=== PATIENT | female | born 2000 | race Caucasian/White ===

== ENCOUNTER 2020-11-10 09:57 | Emergency (ER) | payer BC ==
[~2020-11-10] VITALS: Ht 170.2 cm; Wt 75.0 kg
[2020-11-10] MEDS ORDERED: meclizine 12.5mg tablet PO ONE (10:25)
[2020-11-10] MEDS ORDERED: ondansetron/PF 4mg/2ml inj IV ONE (10:25)
[2020-11-10] MEDS ORDERED: normal saline 1000ml 1,000 ML IV ONE (10:25)
[2020-11-10 11:00] VITALS: BP 110/76
[2020-11-10 11:08] LABS: CLARITY,URINE CLOUDY (Clear); COLOR,URINE YELLOW (Yellow); GLUCOSE, URINE NEGATIVE (Neg); KETONES,URINE NEGATIVE (Neg); LEUKOCYTE ESTERASE ,URINE LARGE (Neg); NITRITES, URINE POSITIVE (Neg); OCCULT BLOOD,URINE TRACE-INTACT (Neg); PROTEIN,URINE NEGATIVE (Neg); UROBILINOGEN,URINE 0.2 E.U/dL (0.2-1.0)
[2020-11-10 11:14] LABS: BASOPHILS % (AUTO) 0.9 % (0-1); EOSINOPHILS # (AUTO) 0.1 X10'3 (0-0.9); EOSINOPHILS % (AUTO) 1.2 % (0-6); HEMATOCRIT 37.3 % (35.0-45.0); HEMOGLOBIN 12.1 g/dl (12.0-16.0); LYMPHOCYTES # (AUTO) 2.4 X10'3 (1.1-4.8); LYMPHOCYTES % (AUTO) 49.5 % (21-51); MEAN CORPUSCULAR HEMOGLOBIN 24.5 PG (27.0-31.0); MEAN CORPUSCULAR HGB CONC 32.4 g/dL (33.0-36.5); MEAN CORPUSCULAR VOLUME 75.6 FL (78-98); MEAN PLATELET VOLUME 8.7 FL (7.4-10.4); MONOCYTES # (AUTO) 0.4 X10'3 (0-0.9); MONOCYTES % (AUTO) 7.5 % (2-12); NEUTROPHILS % (AUTO) 40.9 % (42-75); PLATELET COUNT 179 X10'3 (140-440); RED BLOOD COUNT 4.93 X10'6 (4.20-5.60); RED CELL DISTRIBUTION WIDTH 14.5 % (11.5-14.5); WHITE BLOOD COUNT 4.9 X10'3 (4.5-11.0)
[2020-11-10 11:15] LABS: UA COLLECTION TYPE CLN CATCH MIDSTREAM
[2020-11-10 11:17] LABS: BACTERIA,URINE 4+ /HPF (Neg); MUCUS STRANDS FEW /LPF (Neg); RBC,URINE 0-2 /HPF (0-2); SQUAMOUS EPITHELIAL CELL,UR MODERATE /LPF (FEW); WBC,URINE TNTC /HPF (0-4)
[2020-11-10 11:24] LABS: ALANINE AMINOTRANSFERASE 38 U/L (12-78); ALBUMIN 3.4 G/DL (3.4-5.0); ALBUMIN/GLOBULIN RATIO 0.8 (1.1-1.5); ALKALINE PHOSPHATASE 90 IU/L (20-180); ANION GAP 13 (8-16); ASPARTATE AMINO TRANSFERASE 29 U/L (10-37); BILIRUBIN,TOTAL 0.3 MG/DL (0.1-1.0); BLOOD UREA NITROGEN 7 MG/DL (7-18); BUN/CREATININE RATIO 10.3 (6.6-38.0); CALCIUM 8.7 MG/DL (8.5-10.1); CHLORIDE 104 MMOL/L (99-107); CREATININE 0.68 MG/DL (0.40-0.90); GLUCOSE 95 MG/DL (70-104); LIPASE 121 U/L (73-393); POTASSIUM 3.4 MMOL/L (3.5-5.1); SODIUM 140 MMOL/L (135-145); TOTAL CARBON DIOXIDE 22.6 MMOL/L (24-32); TOTAL PROTEIN 7.9 G/DL (6.4-8.2); eGFR > 90 ML/MIN
[2020-11-10] MEDS ORDERED: CEPH250T PO (11:35)
[2020-11-10] MEDS ORDERED: PHEN-824 PO (11:35)
[2020-11-10] MEDS ORDERED: MECL-226 PO (11:35)
[2020-11-10] MEDS ORDERED: ONDA4TAB6 PO (11:36)
[2020-11-10] MEDS ORDERED: potassium Cl 20 mEq SR tablet PO ONE (11:40)
== END 2020-11-10 13:20 | disposition home or self-care (01) ==
LOC: ER 09:57
DX: N39.0 Urinary tract infection, site not specified (principal); E87.6 Hypokalemia; R06.02 Shortness of breath; R10.30 Lower abdominal pain, unspecified; R51.9 Headache, unspecified; Z79.899 Other long term (current) drug therapy
CPT/HCPCS: 36415; 80053; 81001; 83690; 85025; 87077; 87088; 87186; 93005; 96374; 99284; J2405; J7030; J8597

== ENCOUNTER 2025-04-05 18:06 | Emergency (ER) | payer BC, MEDICAID ==
[~2025-04-05] VITALS: Ht 170.2 cm; Wt 75.9 kg
[~2025-04-05 18:06] MED LIST: MECL-226 PO; ONDA4TAB6 PO; PHEN-824 PO
[2025-04-05 18:17] VITALS: BP 120/64; PULSE 74; O2SAT 99
[2025-04-05 20:48] LABS: URINE HCG POSITIVE (NEG)
[2025-04-05 20:50] LABS: LEUKOCYTE ESTERASE ,URINE NEGATIVE (Neg); NITRITES, URINE NEGATIVE (Neg); OCCULT BLOOD,URINE NEGATIVE (Neg)
--- NOTE | 2025-04-05 20:58 | Physician Documentation ---
History of Present Illness ~ Chief Complaint: Complications Stated Complaint: COMPLICATION Time Seen by MD: 22:26 HPI This is a 24-year-old female who presents with a concern for possible miscarriage, patient reports she believes she may be 5-6 weeks though experienced two days of heavy vaginal bleeding without clots. Patient reports she is not currently experiencing any bleeding though is experiencing sharp suprapubic pain. She reports her blood type is A positive Medication Reconciliation Allergies: Coded Allergies: No Known Allergies (Unverified , 04/05/25) Scheduled Meclizine HCl (Meclizine HCl), 1 TAB PO Q8H Ondansetron Hcl (Zofran), 1 TAB PO Q6H Phenazopyridine HCl (Pyridium), 1 TAB PO Q8H Past Medical History Past Medical History: No Pertinent History Past Surgical History: no surgical history Alcohol Use: None Drug Use: none Lives In: Home Occupation: employed Review of Systems ROS As stated above in the HPI, otherwise all systems are reviewed and negative. Physical Exam Physical Exam Vital Signs: Temperature: 98.0, Source: Temporal, Heart Rate: 74, Respiratory Rate: 18, BP: 120/64, Pulse Oximetry: 99, Weight: 75.900 Oxygen Flow Rate: 0 Physical Exam VITALS: Reviewed and as above. GENERAL: Alert, nontoxic appearing, no apparent distress. HEENT: RESPIRATORY: No increased work of breathing, no respiratory distress, speaking in full clear sentences CHEST: CV: BACK: GI: MUSCULOSKELETAL: SKIN: NEURO: PSYCH: Progress Results/Orders Results/Orders Orders - WILFREDO CASTAÑEDA MD OB (04/05/25 22:26) Completed Orders - WILFREDO CASTAÑEDA MD Hcg, Ur Ql (04/05/25 18:30) Ua W/Microscopic, Cult If Ind (04/05/25 18:56) Vital Signs 04/05/25 04/05/25 18:17 22:28 Temp 98.0 Pulse 74 Resp 18 16 B/P (MAP) 120/64 Pulse Ox 99 O2 Flow Rate 0 Laboratory Tests Test 04/05/25 18:56 04/05/25 21:07 Urine Specimen Description Cln catch midstream Urine Color Yellow Urine Clarity Slightly cloudy Urine pH 6.0 Urine Specific [place] 1.020 Urine Protein Negative Urine Glucose (UA) Negative Urine Ketones Negative Urine Occult Blood Negative Urine Nitrite Negative Urine Bilirubin Negative Urine Urobilinogen 0.2 Urine Leukocyte Esterase Negative Urine RBC 0-2 Urine WBC 0-4 Urine Squamous Epithelial Cells Moderate Urine Amorphous Urates 1+ Urine Bacteria Few Urine Mucus Few Urine Culture Indicated Not ind Volume Urine Centrifuged 10 ml Urine HCG, Qualitative Positive Urine Comment White Blood Count 7.8 Red Blood Count 4.64 Hemoglobin 10.4 L Hematocrit 33.3 L Mean Corpuscular Volume 71.9 L Mean Corpuscular Hemoglobin 22.4 L Mean Corpuscular Hemoglobin Concent 31.1 L Red Cell Distribution Width 16.2 H Platelet Count 244 Mean Platelet Volume 8.5 Neutrophils (%) (Auto) 55.9 Lymphocytes (%) (Auto) 35.5 Monocytes (%) (Auto) 6.3 Eosinophils (%) (Auto) 1.2 Basophils (%) (Auto) 1.1 H Neutrophils # (Auto) 4.3 Lymphocytes # (Auto) 2.8 Monocytes # (Auto) 0.5 Eosinophils # (Auto) 0.1 Basophils # (Auto) 0.1 CBC Comment Sodium Level 136 Potassium Level 3.4 L Chloride Level 102 Carbon Dioxide Level 25.4 Anion Gap 9 Blood Urea Nitrogen 7 Creatinine 0.68 Estimated GFR/1.73 m2 > 90 BUN/Creatinine Ratio 10.3 Glucose Level 83 Calcium Level 8.7 Albumin 4.0 HCG Beta Subunit 43856 Chemistry Comments Medical Decision Making Findings Patient presents to the emergency room with bleeding in . Differentials include but are not limited to anemia, miscarriage, threatened miscarriage, subchorionic hematoma therefore labs and imaging indicated. Ultrasound is reassuring for dates of six weeks three days, heart rate 153 and due date of November 26, 2025. Labs reassuring. The need to follow up with OBGYN discussed. Departure Disposition: HOME / SELF CARE / HOMELESS Impression: Primary Impression: Bleeding in early Condition: Fair Discharge Instructions: Threatened Miscarriage Additional Instructions: Your lab workup that has reassuring that has that has your ultrasound. No abnormality could be seen on ultrasound and you or six weeks three days by measurements in the due date is November 26, 2025. Follow up with OBGYN as soon as possible Referrals: NO PRIMARY CARE PROVIDER (PCP) Prescriptions Pnv No.95/Ferrous Fum/Folic AC ( Multivitamin Tablet) 28 Mg Iron-800 Mcg Tablet 1 TAB PO DAILY for 30 Days, #30 TAB 0 Refills Prov: WILFREDO CASTAÑEDA MD 04/05/25 Signature Scribe Signature: No scribe Attestation: The note accurately reflects work and decisions made by me.Wilfredo Castañeda MD 04/05/25 23:49 ALFREDITO MCGEE Apr 05, 2025 20:58 WILFREDO CASTAÑEDA MD Apr 05, 2025 22:30
[2025-04-05 21:03] LABS: UA COLLECTION TYPE CLN CATCH MIDSTREAM
[2025-04-05 21:04] LABS: AMORPHOUS URATES 1+; MUCUS STRANDS FEW /LPF (Neg); SQUAMOUS EPITHELIAL CELL,UR MODERATE /LPF (FEW)
[2025-04-05 21:24] LABS: MEAN PLATELET VOLUME 8.5 FL (7.4-10.4); RED CELL DISTRIBUTION WIDTH 16.2 % (11.5-14.5)
[2025-04-05 21:33] LABS: CREATININE 0.68 MG/DL (0.40-0.90); TOTAL CARBON DIOXIDE 25.4 MMOL/L (24-32); eCRCL 124 ML/MIN; eGFR > 90 ML/MIN
[2025-04-05 22:28] VITALS: RESP 16
[2025-04-05] MEDS ORDERED: PNV1TABL87 PO (23:49)
[2025-04-05 23:56] VITALS: TEMP 98
--- NOTE | 2025-04-06 00:03 | RADIOLOGY REPORT ---
OB ULTRASOUND <14 WEEKS: HISTORY: bleeding in TECHNIQUE: Multiple real-time grayscale sonographic images of the pelvis with duplex Doppler color flow, spectral and M-mode analysis. COMPARISON: None FINDINGS: The uterus measures 9.3 x 6.7 x 5.3 cm. No significant pelvic cul-de-sac free fluid. Right ovary measures 4.2 x 2.4 x 2.3 cm with normal Doppler color flow and contains an anechoic cyst measuring 2.1 x 1.7 x 1.6 cm. Left ovary measures 2.9 x 2.3 x 1.4 cm with normal Doppler color flow and contains an anechoic cyst measuring 1.5 x 1.3 x 1.3 cm. IUP single fetus at 6 weeks 3 days average ultrasound age based on mean crown- rump length of 0.5 cm and gestational sac size of 2.1 cm heart rate detected at 143 beats per minute. Yolk sac is seen. IMPRESSION: 1. IUP single fetus with positive heart tones at 6 weeks 3 days AUA. 2. No acute abnormality detected.
== END 2025-04-06 | disposition home or self-care (01) ==
LOC: ER 18:07
DX: O20.9 Hemorrhage in early pregnancy, unspecified (principal); Z88.8 Allergy status to other drugs, medicaments and biological substances; Z3A.01 Less than 8 weeks gestation of pregnancy
CPT/HCPCS: 36415; 76801; 80048; 81001; 81025; 84702; 85025; 99284